=== PATIENT | female | born 1960 | race Caucasian/White ===

== ENCOUNTER 2017-01-19 17:36 | Inpatient (IN) ==
[2017-01-19] MEDS ORDERED: LEVOFLOXACIN INJ 750 MG in PREMIX 1 EACH IV STA (17:50)
[2017-01-19] MEDS ORDERED: methylPREDNISolone SOD SUC 125 MG/2 ML VIAL IV STA (17:50)
[2017-01-19] MEDS ORDERED: ONDANSETRON 4 MG/2 ML VIAL IV STA (17:50)
--- NOTE | 2017-01-19 17:54 | Emergency Department Note ---
Arrival - Arrival Chief Complaint: Shortness of Breath ED Nursing Triage Note: pt was [facility] from the [facility] for ?pneumonia and sob Mode of Arrival: Stretcher Limitations: No Limitations Source: Patient Time Seen by Provider: 01/19/17 17:50 - History of Present Illness HPI Narrative: This 56-year-old [facility] patient with a DNR label presents for respiratory difficulties but no other history accompanies the patient including oxygen saturation and temperature at the [facility]. Although the patient is oriented to person and place she cannot give any cognizant history answering in a positive fashion to every question given her. Currently she does not appear in any acute medical distress. Onset (ago): hour(s) (Patient presents several hours post onset of symptoms) Allergies/Adverse Reactions: Allergies Allergy/AdvReac Type Severity Reaction Status Date / Time No Known Allergies Allergy Verified 05/28/16 10:38 Home Medications: Home Medications Medication Instructions Recorded Confirmed Type Citalopram [CeleXA] 20 mg PEG DAILY 01/12/16 12/15/16 History Furosemide Tab [Lasix Tab] 40 mg PEG BID 01/12/16 12/15/16 History Metoprolol Tartrate 100 mg PEG BID 01/12/16 12/15/16 History Multivit-Minerals/Ferrous Fum 15 ml PEG DAILY 01/12/16 12/15/16 History [Multivitamin Liquid] Warfarin [Coumadin] 5 mg PEG DAILY 01/12/16 12/15/16 History amLODIPine [Norvasc] 5 mg PEG DAILY 01/12/16 12/15/16 History levETIRAcetam LIQUID [Keppra 500 mg PEG Q12H 01/12/16 12/15/16 History Liquid] Polyvinyl Alcohol 1.4% Oph Sherrill 2 drop BOTH EYES QID 05/28/16 12/15/16 History [Artificial Tears Oph Soln] Potassium Chloride [K-Tab ER] 10 meq PEG DAILY 05/28/16 12/15/16 History Albuterol/Ipratropium Neb [Duoneb] 3 ml RESP TX RT Q4H 07/25/16 12/15/16 History Insulin Glargine [Lantus] 30 unit SUBCUT 0500,1600 07/25/16 12/15/16 History Metoclopramide Tab [Reglan Tab] 10 mg PO TIDAC 07/25/16 12/15/16 History Esomeprazole Magnesium [Nexium] 20 mg PEG BID #0 07/30/16 12/15/16 Rx Review of System - Review of System ROS unobtainable: due to mental status Medical,Surgical,& Family Hx - Medical History Cardio: History of: Cardiac Dysrhythmia, CHF, CAD, Hypertension, [place], Pacemaker, Cardiovascular Problems (pacemaker) Psychological: History of: Depression Neurology: History of: Cerebrovascular Accident No history of: Seizures Endocrine: History of: Diabetes Mellitus (IDDM), Diabetes Mellitus (NIDDM), Thyroid Disorder (hypothyrodism) Respiratory: History of: Respiratory Problems (h/o trach) Renal: History of: Renal Failure (chronic), Renal Problems (chronic kidney disease not on dialysis) Gastrointestinal: History of: GERD, GI Problems (constipation) - Surgical History Cardiac Surgeries: Sugical HX of: Cardiac Catheterization Thoracic Surgeries: Patient denies;: Organ Transplant - Social History Smoking Status: Never smoker Frequency of Alcohol Use: None Type of Drug Use: None Exam Physical Examination: GENERAL: Well developed, well nourished chronically ill-appearing white female in no acute distress. HEENT: Normocephalic. No trauma. Moist mucous membranes. EOMI. PERRLA. ENT NML NECK: Supple. No adenopathy. Trach scar noted. CARDIAC: Regular. No murmurs. Heart rate 115 CHEST: Scattered expiratory rhonchi and wheeze. No respiratory distress. O2 saturation 92% ABDOMEN: Soft. Nontender. Active bowel sounds. EXTREMITIES: No trauma. Normal ROM. No pedal edema. SKIN: No diaphoresis. No rash. NEURO: Alert. Oriented to person and place only. 4 out of 5 left-sided weakness compared to right Vital Signs: Vital Signs Temperature 96.6 F L 01/19/17 17:40 Pulse Rate 134 H 01/19/17 18:14 Respiratory Rate 18 01/19/17 18:14 Blood Pressure 95/77 01/19/17 17:40 O2 Sat by Pulse Oximetry 97 01/19/17 18:14 Course - Reevaluation(s) Reevaluation #1: Advised patient of need for hospitalization if she can understand. - Consultations Consultation #1: Discussed with hospitalist service who will admit for further evaluation treatment. Results - Labs CBC & BMP: 01/19/17 18:17 Labs: I reviewed the laboratory noted the elevated white blood cell count as well as the very infected urine. Likewise noted was elevated BMP and significantly lengthened INR. - Diagnostic Findings Procedure: Chest x-ray: image reviewed by me, report reviewed by me (No acute disease) Disposition Clinical Impression: Bacterial tracheobronchitis, Cystitis, Prolonged INR Case discussed with: patient Disposition: Still a Patient Condition: Guarded Time of Disposition: 19:25
[2017-01-19] MEDS ORDERED: ALBUTEROL 2.5 MG/3 ML NEB RESP TX ONE ×3 (18:11→18:57)
[2017-01-19] MEDS: ALBUTEROL 2.5 MG/3 ML NEB RESP TX SCH ×3 (18:14→18:40)
[2017-01-19 18:24] LABS: Basophils # 0.1 10*3/uL (0.0-0.2); Basophils % 0.4 % (0.0-0.8); Hematocrit 44.2 VOL% (35.7-47.0); Hemoglobin 14.7 GM/DL (12.0-16.0); Immature Granulocytes % 1.1 %; Immature Granulocytes Absolute 0.25 #; Lymphocytes # 1.2 10*3/uL (1.4-4.0); Lymphocytes % 5.3 % (21.3-54.2); Mean Corpuscular HGB Conc 33.3 GM/DL (32-36); Mean Corpuscular Hemoglobin 27 PG (27-34); Mean Corpuscular Volume 81.7 FL (87-102); Monocytes # 1.1 10*3/uL (0.11-0.8); Monocytes % 4.8 % (1.7-12.7); Neutrophils # 20.1 10*3/uL (1.4-7.4); Neutrophils % 88.4 % (38.7-73.9); Platelet Count 163 T/CUMM (130-400); Red Blood Count 5.41 MC/CUMM (3.8-5.5); Red Cell Distribution Width 15.4 % (9.3-17.3); White Blood Count 22.7 T/CUMM (4-12)
[2017-01-19] MEDS ORDERED: ONDANSETRON 4 MG/2 ML VIAL ONE (18:30)
[2017-01-19] MEDS ORDERED: LEVOFLOXACIN INJ 150 ML IV ONE (18:30)
[2017-01-19] MEDS ORDERED: methylPREDNISolone SOD SUC 125 MG/2 ML VIAL ONE (18:31)
--- NOTE | 2017-01-19 18:48 | XRay Report ---
Portable chest Exam date: 01/19/2017 5:51 PM Indication: Shortness of breath, cough Comparison: July 26, 2016 at 5:54 PM Findings: Cardiomediastinal contours are stable with no change in pacemaker placement. Lungs are clear bilaterally. No acute osseous abnormalities. Visualized upper abdomen demonstrates no acute pathology. Impression: No acute cardiopulmonary findings PROCEDURE INTERPRETED AT [facility] DEPARTMENT OF RADIOLOGY Final Report Signed by: Kathleen Thao MD
[2017-01-19 18:50] LABS: INR 4.8
[2017-01-19 18:51] LABS: Apearance,Urine CLOUDY (Clear); Bacteria,Urine Few /HPF (Few); Bilirubin,Urine Negative (Negative); Blood, Urine Large mg/dL (Negative); Glucose,Urine (UA) Negative (Negative); Ketones,Urine Negative (Negative); Nitrite,Urine Negative (Negative); Protein,Urine Negative; RBC,Urine 29 /HPF (0-4); Squamous Epithelial Cell,Urine Occasional /HPF (0-10); Urine Specific Gravity 1.013 (1.001-1.035); Urine Urobilinogen < 2.0 EU/DL (0.2-1.0); WBC,Urine 165 /HPF (0-6)
[2017-01-19 18:52] LABS: Urine Color Yellow (Yellow)
[2017-01-19 18:58] LABS: Partial Thromboplastin Time 60.5 SECS (0-40)
[2017-01-19 19:51] LABS: Band Neutrophils 2 % (0-10); Lymphocytes 5 % (20-55); Platelet Estimate Normal; Segmented Neutrophils 89 % (50-85); Total Cells Counted 100
[2017-01-19] MEDS ORDERED: ONDANSETRON 4 MG/2 ML VIAL IV PRN (20:02)
[2017-01-19] MEDS ORDERED: ALBUTEROL 2.5 MG/3 ML NEB RESP TX PRN (20:02)
[2017-01-19] MEDS ORDERED: ACETAMINOPHEN 325 MG TABLET PO PRN (20:02)
--- NOTE | 2017-01-19 20:17 | Hospitalist History & Physical ---
Assessment and Plan (1) History of stroke Status: Acute Current Visit: Yes (2) Afib Status: Acute Current Visit: No (3) Seizures Status: Acute Current Visit: No (4) CHF (congestive heart failure) Status: Acute Current Visit: No (5) UTI (urinary tract infection) Status: Acute Current Visit: No (6) Hematemesis Status: Acute Assessment and plan: We will admit the patient her our service. Patient is a DNR per documentation from the [facility]. I am unsure what her baseline mental status is. Patient did have a chemistry drawn earlier today from the [facility] on the same. Does show a low potassium. This needs to be repleted. Which is a little bit lower than her 0.8 previously. Creatinine is 1.3. This can be handled by increased her water flushes with her tube feeds. She looks a little dehydrated. Reevaluate patient in the morning and adjust plans appropriate. We need to treat her urinary tract infection we need to monitor her INR daily while she is here. Currently she had a 4.8. She was given Levaquin in the emergency room this most likely will increase. Current Visit: No Qualifiers: Nausea presence: with nausea Qualified Code(s): K92.0 - Hematemesis; R11.0 - Nausea History of Present Illness Chief complaint: Low O2 sats and shortness of breath History of present illness: Ms. Serrano is a 56 year old female who is a resident of a [facility]. She cannot give any history. She does reports to me that she does not feel good. According to our computer system she has a history of congestive heart failure coronary artery disease hypertension [place] pacemaker depression stroke diabetes or thyroid disorder history of a trach respiratory failure chronic kidney disease and reflux. She is on Coumadin for atrial fibrillation. She has elevated INR. She has profound deficits from her stroke in the past and she is on PEG tube feedings. Home Medications Medication Instructions Recorded Confirmed Type Citalopram [CeleXA] 20 mg PEG DAILY 01/12/16 01/19/17 History Furosemide Tab [Lasix Tab] 40 mg PEG BID 01/12/16 01/19/17 History Metoprolol Tartrate 100 mg PEG BID 01/12/16 01/19/17 History Multivit-Minerals/Ferrous Fum 15 ml PEG DAILY 01/12/16 01/19/17 History [Multivitamin Liquid] Warfarin [Coumadin] 5 mg PEG DAILY 01/12/16 01/19/17 History amLODIPine [Norvasc] 5 mg PEG DAILY 01/12/16 01/19/17 History levETIRAcetam LIQUID [Keppra 500 mg PEG Q12H 01/12/16 01/19/17 History Liquid] Polyvinyl Alcohol 1.4% Oph Sherrill 2 drop BOTH EYES QID 05/28/16 01/19/17 History [Artificial Tears Oph Soln] Potassium Chloride [K-Tab ER] 10 meq PEG DAILY 05/28/16 01/19/17 History Insulin Glargine [Lantus] 30 unit SUBCUT 0500,1600 07/25/16 01/19/17 History Metoclopramide Tab [Reglan Tab] 10 mg PO TIDAC 07/25/16 01/19/17 History Esomeprazole Magnesium [Nexium] 20 mg PEG BID #0 07/30/16 01/19/17 Rx Sodium Chloride 5% Oph Oint [Arvin 1 applic LEFT EYE BEDTIME 01/19/17 01/19/17 History 128 Oph Oint] Allergies Allergy/AdvReac Type Severity Reaction Status Date / Time No Known Allergies Allergy Verified 05/28/16 10:38 Medical,Surgical,& Family Hx - Medical History Cardio: History of: Cardiac Dysrhythmia, CHF, CAD, Hypertension, [place], Pacemaker, Cardiovascular Problems (pacemaker) Psychological: History of: Depression Neurology: History of: Cerebrovascular Accident No history of: Seizures Endocrine: History of: Diabetes Mellitus (IDDM), Diabetes Mellitus (NIDDM), Thyroid Disorder (hypothyrodism) Respiratory: History of: Respiratory Problems (h/o trach) Renal: History of: Renal Failure (chronic), Renal Problems (chronic kidney disease not on dialysis) Gastrointestinal: History of: GERD, GI Problems (constipation) - Surgical History Cardiac Surgeries: Sugical HX of: Cardiac Catheterization Thoracic Surgeries: Patient denies;: Organ Transplant - Family History Family History: Reports;: Family Hypertension - Social History Smoking Status: Never smoker Frequency of Alcohol Use: None Type of Drug Use: None ROS unobtainable: due to mental status Exam - Constitutional Vitals: Period Temp Pulse Resp BP Sys/Esquivel Pulse Ox Last 24 Hr 96.6 F-96.6 F 117-134 18-18 95-95/77-77 92-97 General appearance: normal weight - Head Head exam: Present: normal inspection - Eye Pupils: Present: SOFYA - ENT ENT exam: Present: normal exam - Neck Neck exam: Present: normal inspection - Respiratory Respiratory exam: Present: other (Coarse breath sounds bilaterally currently no wheeze) - Cardiovascular Cardiovascular exam: Present: tachycardia - GI/Abdominal GI/Abdominal exam: Present: normal bowel sounds, other (PEG tube in place) - Extremities Exam Extremities exam: Present: edema - Back Exam Back exam: Present: normal inspection - Neurological Exam Neurological exam: Present: other (Neurological deficits present from stroke oriented to person and place only with residual left-sided weakness) - Psychiatric Psychiatric exam: Present: depressed Results - Labs CBC & BMP: 01/19/17 18:17
[2017-01-19] MEDS ORDERED: NON-FORMULARY MEDICATION (Esomeprazole Magnesium [Nexium] 20 MG) PEG SCH (21:00)
[2017-01-19 22:14] LABS: Alanine Aminotransferase 17 U/L (13-56); Albumin 3.1 G/DL (3.4-5.0); Alkaline Phosphatase 107 U/L (45-117); Aspartate Amino Transferase 21 U/L (0-37); Blood Urea Nitrogen 44 MG/DL (7-18); Calcium 9.6 MG/DL (8.5-10.1); Glucose 112 MG/DL (74-106); Osmolality,Calculated 281.1 MOS/KG (273-304); Potassium 3.6 MMOL/L (3.5-5.1); Sodium 135 MMOL/L (136-145); Total Protein 8.2 G/DL (6.4-8.3); Troponin I Only < 0.015 NG/ML (0.00-0.045)
[2017-01-19] MEDS ORDERED: DEXTROSE 50% 25 GM/50 ML SYRINGE IV PRN (22:26)
[2017-01-19] MEDS ORDERED: POTASSIUM CHLORIDE 20 MEQ/15 ML UDCUP PO PRN (22:26)
[2017-01-19] MEDS ORDERED: GLUCAGON 1 MG VIAL IM PRN (22:26)
[2017-01-19] MEDS ORDERED: POTASSIUM CHLORIDE 20 MEQ/15 ML UDCUP PER TUBE PRN (22:46)
[2017-01-19] MEDS: INSULIN REGULAR 100 UNIT/ML SUBCUT SCH (23:55)
[2017-01-20] MEDS: POLYVINYL ALCOHOL 1.4% OPH SOLN 15 ML BOTTLE BOTH EYES SCH ×5 (00:02→21:58)
[2017-01-20] MEDS: levETIRAcetam LIQUID 100 MG/ML 30 ML/BOTTLE PEG SCH ×3 (00:02→21:58)
[2017-01-20] MEDS: SODIUM CHLORIDE 5% LEFT EYE SCH ×2 (00:02→21:58)
[2017-01-20] MEDS: FUROSEMIDE 40 MG TABLET PEG SCH ×3 (00:09→16:47)
[2017-01-20] MEDS: ALBUTEROL/IPRATROPIUM 3 ML NEB RESP TX SCH ×4 (01:01→20:06)
[2017-01-20 07:17] LABS: Basophils % 0.1 % (0.0-0.8); Hemoglobin 12.9 GM/DL (12.0-16.0); Immature Granulocytes % 1.7 %; Immature Granulocytes Absolute 0.39 #; Lymphocytes # 0.4 10*3/uL (1.4-4.0); Lymphocytes % 1.8 % (21.3-54.2); Mean Corpuscular HGB Conc 33.1 GM/DL (32-36); Mean Corpuscular Hemoglobin 27 PG (27-34); Mean Corpuscular Volume 81.8 FL (87-102); Monocytes # 0.8 10*3/uL (0.11-0.8); Monocytes % 3.4 % (1.7-12.7); Neutrophils # 21.1 10*3/uL (1.4-7.4); Platelet Count 158 T/CUMM (130-400); Red Blood Count 4.77 MC/CUMM (3.8-5.5); Red Cell Distribution Width 14.8 % (9.3-17.3); White Blood Count 22.7 T/CUMM (4-12)
[2017-01-20 07:39] LABS: PT Patient Result 73.3 SECS
[2017-01-20 07:40] LABS: INR 6.7
[2017-01-20 07:44] LABS: Band Neutrophils 8 % (0-10); Hypochromasia Slight; Lymphocytes 1 % (20-55); Platelet Estimate Adequate; Segmented Neutrophils 90 % (50-85); Total Cells Counted 100
[2017-01-20 07:58] LABS: Albumin 2.4 G/DL (3.4-5.0); Bilirubin,Total 0.7 MG/DL (0.2-1.0); Calcium 9.3 MG/DL (8.5-10.1); Osmolality,Calculated 299.2 MOS/KG (273-304); Potassium 3.2 MMOL/L (3.5-5.1); Total Protein 7.3 G/DL (6.4-8.3)
[2017-01-20] MEDS: POTASSIUM CHLORIDE 20 MEQ/15 ML UDCUP PEG SCH (09:23)
[2017-01-20] MEDS: INSULIN REGULAR 100 UNIT/ML SUBCUT SCH ×4 (09:23→22:14)
[2017-01-20] MEDS: CITALOPRAM 20 MG TABLET PEG SCH (09:24)
[2017-01-20] MEDS: amLODIPine 5 MG TABLET PEG SCH (09:24)
[2017-01-20] MEDS: LANSOPRAZOLE ODT 30 MG TABLET PEG SCH (09:24)
[2017-01-20] MEDS: METOCLOPRAMIDE 10 MG/10 ML UDCUP PEG SCH ×3 (09:25→16:47)
[2017-01-20] MEDS: MULTIVITAMIN LIQUID (CENTRUM) 60 ML BOTTLE PEG SCH (09:25)
[2017-01-20] MEDS ORDERED: PHYTONADIONE 5 MG TABLET PEG ONE (10:00)
--- NOTE | 2017-01-20 11:02 | Hospitalist Progress Note ---
Assessment and Plan (1) Elevated INR Status: Acute Assessment and plan: INR up to 6 today, possibly elevated more due to receiving levaquin yesterday Continue to hold coumadin Current Visit: Yes (2) Diabetes mellitus Status: Chronic Assessment and plan: SSI Current Visit: No Qualifiers: Diabetes mellitus type: type 2 (3) Afib Status: Acute Current Visit: No (4) UTI (urinary tract infection) Status: Acute Assessment and plan: Gram negative rods on urine culture so far Continue rocephin Current Visit: No (5) Hematemesis Status: Acute Assessment and plan: H/H is ok Will consult GI before discharge Current Visit: No Qualifiers: Nausea presence: with nausea Qualified Code(s): K92.0 - Hematemesis; R11.0 - Nausea (6) History of stroke Status: Acute Current Visit: Yes Hospitalist: Subjective Interval history: No acute events overnight. Patient is drowsy this morning but will wake up and answer questions. She does tell me that has been throwing up bed, the last time was about a week ago. Exam - Constitutional Vitals: Period Temp Pulse Resp BP Sys/Esquivel Pulse Ox Last 24 Hr 96.6 F-98.3 F 65-134 16-20 95-122/52-77 92-98 General appearance: normal weight - Head Head exam: Present: normocephalic, atraumatic - Eye Eye exam: Present: EOMI Pupils: Present: SOFYA - ENT ENT exam: Present: normal exam - Neck Neck exam: Present: normal inspection - Respiratory Respiratory exam: Present: clear to auscultation bilaterally. Absent: wheezes - Cardiovascular Cardiovascular exam: Present: regular rate and rhythm - GI/Abdominal GI/Abdominal exam: Present: normal bowel sounds, soft. Absent: tenderness, rebound - Extremities Exam Extremities exam: Present: normal inspection - Back Exam Back exam: Present: normal inspection - Neurological Exam Neurological exam: Present: alert - Psychiatric Psychiatric exam: Present: normal affect, normal mood - Skin Skin exam: Present: warm, intact Results - Labs CBC & BMP: 01/20/17 06:03 01/20/17 06:03
[2017-01-21] MEDS: ALBUTEROL/IPRATROPIUM 3 ML NEB RESP TX SCH ×4 (00:57→20:07)
--- NOTE | 2017-01-21 07:38 | XRay Report ---
XR chest 1V portable Indication: Cough and fever Comparison: To January 2017 Findings: The heart and mediastinum are normal in size and configuration. Pacemaker device is unchanged in position. The pulmonary vascularity is normal in caliber. There is increased right lower lung density present. No other lung infiltrates, effusions, pneumothorax or other abnormality is demonstrated. Impression: Increased right lower lung density, may represent pneumonia. PROCEDURE INTERPRETED AT [facility] DEPARTMENT OF RADIOLOGY Final Report Signed by: Dr. Gregory Arce
[2017-01-21] MEDS: FUROSEMIDE 40 MG TABLET PEG SCH ×2 (07:58→16:00)
[2017-01-21] MEDS: METOCLOPRAMIDE 10 MG/10 ML UDCUP PEG SCH ×3 (07:58→15:59)
[2017-01-21 08:04] LABS: Basophils % 0.2 % (0.0-0.8); Hematocrit 37.4 VOL% (35.7-47.0); Hemoglobin 12.7 GM/DL (12.0-16.0); Immature Granulocytes % 0.7 %; Immature Granulocytes Absolute 0.13 #; Lymphocytes # 0.9 10*3/uL (1.4-4.0); Lymphocytes % 4.4 % (21.3-54.2); Mean Corpuscular Hemoglobin 28 PG (27-34); Mean Corpuscular Volume 81.3 FL (87-102); Monocytes # 0.9 10*3/uL (0.11-0.8); Monocytes % 4.5 % (1.7-12.7); Neutrophils # 17.4 10*3/uL (1.4-7.4); Neutrophils % 90.2 % (38.7-73.9); Platelet Count 194 T/CUMM (130-400); Red Cell Distribution Width 15.3 % (9.3-17.3); White Blood Count 19.3 T/CUMM (4-12)
[2017-01-21 08:11] LABS: INR 3.8
[2017-01-21 08:13] LABS: PT Patient Result 40.1 SECS
[2017-01-21 08:23] LABS: Calcium 9.7 MG/DL (8.5-10.1); Magnesium 2.4 MG/DL (1.8-2.4); Osmolality,Calculated 310.1 MOS/KG (273-304); Potassium 4.1 MMOL/L (3.5-5.1)
[2017-01-21 08:26] LABS: Band Neutrophils 7 % (0-10); Hypochromasia 1+; Lymphocytes 3 % (20-55); Segmented Neutrophils 87 % (50-85); Total Cells Counted 100
[2017-01-21 08:27] LABS: Microcytosis 1+; Platelet Estimate Adequate
[2017-01-21] MEDS ORDERED: DEXTROSE 50% 25 GM/50 ML VIAL IV PRN (08:30)
[2017-01-21] MEDS: INSULIN REGULAR 100 UNIT/ML SUBCUT SCH ×4 (10:25→20:53)
[2017-01-21] MEDS: POTASSIUM CHLORIDE 20 MEQ/15 ML UDCUP PEG SCH (10:25)
[2017-01-21] MEDS: CITALOPRAM 20 MG TABLET PEG SCH (10:27)
[2017-01-21] MEDS: LANSOPRAZOLE ODT 30 MG TABLET PEG SCH (10:27)
[2017-01-21] MEDS: amLODIPine 5 MG TABLET PEG SCH (10:27)
[2017-01-21] MEDS: levETIRAcetam LIQUID 100 MG/ML 30 ML/BOTTLE PEG SCH ×2 (10:30→20:52)
[2017-01-21] MEDS: POLYVINYL ALCOHOL 1.4% OPH SOLN 15 ML BOTTLE BOTH EYES SCH ×4 (10:32→20:52)
[2017-01-21] MEDS: MULTIVITAMIN LIQUID (CENTRUM) 60 ML BOTTLE PEG SCH (10:32)
[2017-01-21] MEDS ORDERED: AZITHROMYCIN INJ 500 MG in SODIUM CHLORIDE 0.9% 250 ML IV ONE (12:30)
--- NOTE | 2017-01-21 13:39 | Hospitalist Progress Note ---
Assessment and Plan (1) Elevated INR Status: Acute Assessment and plan: INR trending down Continue to hold coumadin Current Visit: Yes (2) Diabetes mellitus Status: Chronic Assessment and plan: SSI Current Visit: No Qualifiers: Diabetes mellitus type: type 2 (3) Afib Status: Acute Current Visit: No (4) UTI (urinary tract infection) Status: Acute Assessment and plan: 2/2 Providencia stuartii Continue rocephin Current Visit: No (5) Hematemesis Status: Acute Assessment and plan: Reports of this None since admission H/H is within normal limits Monitor closely Current Visit: No Qualifiers: Nausea presence: with nausea Qualified Code(s): K92.0 - Hematemesis; R11.0 - Nausea (6) History of stroke Status: Acute Current Visit: Yes Hospitalist: Subjective Interval history: No acute events overnight. Patient is drowsy but will wake up and answer questions. Exam - Constitutional Vitals: Period Temp Pulse Resp BP Sys/Esquivel Pulse Ox Last 24 Hr 96.7 F-98.0 F 72-132 14-20 76-110/51-71 94-99 General appearance: normal weight - Head Head exam: Present: normocephalic, atraumatic - Eye Eye exam: Present: EOMI Pupils: Present: SOFYA - ENT ENT exam: Present: normal exam - Neck Neck exam: Present: normal inspection - Respiratory Respiratory exam: Present: clear to auscultation bilaterally. Absent: rhonchi, wheezes - Cardiovascular Cardiovascular exam: Present: regular rate and rhythm - GI/Abdominal GI/Abdominal exam: Present: normal bowel sounds, soft. Absent: tenderness, rebound - Extremities Exam Extremities exam: Present: normal inspection - Back Exam Back exam: Present: normal inspection - Neurological Exam Neurological exam: Present: alert - Psychiatric Psychiatric exam: Absent: agitated, anxious - Skin Skin exam: Present: warm, intact Results - Labs CBC & BMP: 01/21/17 07:00 01/21/17 07:00
[2017-01-21] MEDS: SODIUM CHLORIDE 5% LEFT EYE SCH (20:52)
[2017-01-22] MEDS: ALBUTEROL/IPRATROPIUM 3 ML NEB RESP TX SCH ×4 (02:31→19:23)
[2017-01-22 05:30] LABS: Basophils % 0.1 % (0.0-0.8); Eosinophils # 0.1 10*3/uL (0.0-0.87); Eosinophils % 0.4 % (0.00-10.9); Hematocrit 38.4 VOL% (35.7-47.0); Hemoglobin 12.4 GM/DL (12.0-16.0); Immature Granulocytes % 0.4 %; Immature Granulocytes Absolute 0.04 #; Lymphocytes # 0.9 10*3/uL (1.4-4.0); Lymphocytes % 8.1 % (21.3-54.2); Mean Corpuscular HGB Conc 32.3 GM/DL (32-36); Mean Corpuscular Hemoglobin 27 PG (27-34); Mean Corpuscular Volume 82.8 FL (87-102); Mean Platelet Volume 12.4 FL (9.6-12.0); Monocytes # 0.9 10*3/uL (0.11-0.8); Monocytes % 7.5 % (1.7-12.7); Neutrophils # 9.4 10*3/uL (1.4-7.4); Neutrophils % 83.5 % (38.7-73.9); Platelet Count 206 T/CUMM (130-400); Red Blood Count 4.64 MC/CUMM (3.8-5.5); Red Cell Distribution Width 15.9 % (9.3-17.3); White Blood Count 11.3 T/CUMM (4-12)
[2017-01-22 05:43] LABS: INR 4.1; PT Patient Result 43.7 SECS
[2017-01-22 06:02] LABS: Calcium 9.2 MG/DL (8.5-10.1); Magnesium 2.5 MG/DL (1.8-2.4); Osmolality,Calculated 316.4 MOS/KG (273-304)
[2017-01-22] MEDS: CITALOPRAM 20 MG TABLET PEG SCH (08:42)
[2017-01-22] MEDS: INSULIN REGULAR 100 UNIT/ML SUBCUT SCH ×4 (08:42→20:24)
[2017-01-22] MEDS: FUROSEMIDE 40 MG TABLET PEG SCH ×2 (08:42→17:10)
[2017-01-22] MEDS: METOCLOPRAMIDE 10 MG/10 ML UDCUP PEG SCH ×3 (08:42→17:11)
[2017-01-22] MEDS: levETIRAcetam LIQUID 100 MG/ML 30 ML/BOTTLE PEG SCH ×2 (08:43→20:25)
[2017-01-22] MEDS: POTASSIUM CHLORIDE 20 MEQ/15 ML UDCUP PEG SCH (08:43)
[2017-01-22] MEDS: LANSOPRAZOLE ODT 30 MG TABLET PEG SCH (08:43)
[2017-01-22] MEDS: amLODIPine 5 MG TABLET PEG SCH (08:44)
[2017-01-22] MEDS: POLYVINYL ALCOHOL 1.4% OPH SOLN 15 ML BOTTLE BOTH EYES SCH ×4 (08:44→20:20)
[2017-01-22] MEDS: AZITHROMYCIN INJ 250 MG in SODIUM CHLORIDE 0.9% 250 ML IV SCH (08:48)
[2017-01-22] MEDS: MULTIVITAMIN LIQUID (CENTRUM) 60 ML BOTTLE PEG SCH (08:49)
--- NOTE | 2017-01-22 18:14 | Hospitalist Progress Note ---
<Prakash Mcdaniels - Last Filed: 01/22/17 18:12> Assessment and Plan (1) Elevated INR Status: Acute Assessment and plan: INR noted at 4.1. This is a moderate increase from 3.8 on yesterday. We will continue to hold Coumadin and recheck INR in a.m. Current Visit: Yes (2) Coffee ground emesis Status: Acute Assessment and plan: No further episodes of hematemesis noted since admission. Protein pump inhibitors and gut motility stimulators remaining use as previously ordered. We will monitor closely. Current Visit: No (3) UTI (urinary tract infection) Status: Acute Assessment and plan: Urine cultures positive for Providencia stuartii; empiric antibiotic coverage remains in progress. We will continue azithromycin and ceftriaxone as previously ordered. Current Visit: No (4) Diabetes mellitus Status: Chronic Assessment and plan: Blood glucose levels remain moderately elevated. Blood glucose levels have remained consistently above 150. We will continue Accu-Cheks with sliding scale coverage as previously ordered. In addition, we will start low-dose Lantus 15 units at the hour of sleep and reassess blood glucose levels in a.m. Current Visit: No Qualifiers: Diabetes mellitus type: type 2 Hospitalist: Subjective Interval history: Seen and examined; chart reviewed. No significant overnight events reported per staff. INR noted at 4.1 a moderate increase from 3.8 on yesterday. Exam - Constitutional Vitals: Period Temp Pulse Resp BP Sys/Esquivel Pulse Ox Last 24 Hr 97.1 F-98.1 F 100-138 18-20 106-131/67-88 93-99 General appearance: normal weight, no acute distress - Head Head exam: Present: normal inspection, normocephalic, atraumatic - Eye Eye exam: Present: EOMI. Absent: conjunctival injection Pupils: Present: SOFYA, normal accommodation - ENT ENT exam: Present: normal exam, normal external ear exam, normal oropharynx - Neck Neck exam: Present: normal inspection. Absent: lymphadenopathy, meningismus, tenderness, thyromegaly - Respiratory Respiratory exam: Present: clear to auscultation bilaterally. Absent: rales, rhonchi, stridor, wheezes - Cardiovascular Cardiovascular exam: Present: bradycardia, regular rate and rhythm. Absent: carotid bruit, diastolic murmur, gallop, JVD, rubs, systolic murmur - GI/Abdominal GI/Abdominal exam: Present: normal bowel sounds, other (PEG tube pain and intact ) - Extremities Exam Extremities exam: Present: normal inspection, normal capillary refill. Absent: edema - Back Exam Back exam: Present: normal inspection - Neurological Exam Neurological exam: Present: alert - Psychiatric Psychiatric exam: Present: flat affect - Skin Skin exam: Present: normal color, warm, dry Results - Labs CBC & BMP: 01/22/17 05:06 01/22/17 05:06 Lab Results: I have reviewed the past 24 hour labs <Beatriz Natarajan - Last Filed: 01/22/17 18:52> Assessment and Plan (1) Elevated INR Status: Acute Current Visit: Yes (2) Diabetes mellitus Status: Chronic Current Visit: No Qualifiers: Diabetes mellitus type: type 2 (3) Afib Status: Acute Current Visit: No (4) UTI (urinary tract infection) Status: Acute Current Visit: No (5) Hematemesis Status: Acute Current Visit: No Qualifiers: Nausea presence: with nausea Qualified Code(s): K92.0 - Hematemesis; R11.0 - Nausea (6) History of stroke Status: Acute Current Visit: Yes Hospitalist: Subjective Interval history: Patient seen and examined independently of IMPROVEMENT INTERN joana Mcdaniels with assessment and plan as documented. Exam - Constitutional Vitals: Period Temp Pulse Resp BP Sys/Esquivel Pulse Ox Last 24 Hr 97.1 F-98.1 F 100-138 18-20 106-131/67-88 93-99 Results - Labs CBC & BMP: 01/22/17 05:06 01/22/17 05:06
[2017-01-22] MEDS: SODIUM CHLORIDE 5% LEFT EYE SCH (20:24)
[2017-01-22] MEDS ORDERED: INSULIN GLARGINE 100 UNIT/ML SUBCUT SCH (21:00)
[2017-01-23] MEDS: ALBUTEROL/IPRATROPIUM 3 ML NEB RESP TX SCH ×4 (00:46→20:23)
[2017-01-23 05:09] LABS: Basophils % 0.4 % (0.0-0.8); Eosinophils # 0.1 10*3/uL (0.0-0.87); Eosinophils % 0.5 % (0.00-10.9); Hematocrit 37.8 VOL% (35.7-47.0); Hemoglobin 12.2 GM/DL (12.0-16.0); Immature Granulocytes % 0.8 %; Immature Granulocytes Absolute 0.08 #; Lymphocytes # 1.1 10*3/uL (1.4-4.0); Mean Corpuscular HGB Conc 32.3 GM/DL (32-36); Mean Corpuscular Hemoglobin 27 PG (27-34); Mean Corpuscular Volume 84.2 FL (87-102); Mean Platelet Volume 12.5 FL (9.6-12.0); Monocytes # 0.9 10*3/uL (0.11-0.8); Monocytes % 9.2 % (1.7-12.7); Neutrophils # 7.6 10*3/uL (1.4-7.4); Neutrophils % 78.1 % (38.7-73.9); Platelet Count 209 T/CUMM (130-400); Red Blood Count 4.49 MC/CUMM (3.8-5.5); Red Cell Distribution Width 16.1 % (9.3-17.3); White Blood Count 9.7 T/CUMM (4-12)
[2017-01-23 05:36] LABS: Calcium 9.4 MG/DL (8.5-10.1); Magnesium 2.6 MG/DL (1.8-2.4); Osmolality,Calculated 321.6 MOS/KG (273-304); Potassium 4.1 MMOL/L (3.5-5.1)
[2017-01-23] MEDS: FUROSEMIDE 40 MG TABLET PEG SCH ×2 (09:46→16:29)
[2017-01-23] MEDS: LANSOPRAZOLE ODT 30 MG TABLET PEG SCH (09:46)
[2017-01-23] MEDS: CITALOPRAM 20 MG TABLET PEG SCH (09:46)
[2017-01-23] MEDS: METOCLOPRAMIDE 10 MG/10 ML UDCUP PEG SCH ×3 (09:47→16:29)
[2017-01-23] MEDS: POLYVINYL ALCOHOL 1.4% OPH SOLN 15 ML BOTTLE BOTH EYES SCH ×4 (09:47→21:58)
[2017-01-23] MEDS: amLODIPine 5 MG TABLET PEG SCH (09:47)
[2017-01-23] MEDS: INSULIN REGULAR 100 UNIT/ML SUBCUT SCH ×4 (09:54→21:49)
[2017-01-23] MEDS: POTASSIUM CHLORIDE 20 MEQ/15 ML UDCUP PEG SCH (10:03)
[2017-01-23] MEDS: levETIRAcetam LIQUID 100 MG/ML 30 ML/BOTTLE PEG SCH ×2 (10:06→22:02)
[2017-01-23] MEDS: MULTIVITAMIN LIQUID (CENTRUM) 60 ML BOTTLE PEG SCH (10:06)
[2017-01-23] MEDS: AZITHROMYCIN INJ 250 MG in SODIUM CHLORIDE 0.9% 250 ML IV SCH (10:17)
[2017-01-23] MEDS: DEXTROSE 5% 1,000 ML IV SCH (10:25)
--- NOTE | 2017-01-23 14:30 | Hospitalist Progress Note ---
<Catherine Mcdanielsda - Last Filed: 01/23/17 14:27> Assessment and Plan (1) Elevated INR Status: Acute Assessment and plan: INR noted at 4.1. This is a moderate increase from 3.8 on yesterday. We will continue to hold Coumadin and recheck INR in a.m. 10/6-Coumadin remains on hold. We will recheck INR in a.m. Current Visit: Yes (2) Coffee ground emesis Status: Acute Assessment and plan: No further episodes of hematemesis noted since admission. Protein pump inhibitors and gut motility stimulators remaining use as previously ordered. We will monitor closely. Current Visit: No (3) UTI (urinary tract infection) Status: Acute Assessment and plan: Urine cultures positive for Providencia stuartii; empiric antibiotic coverage remains in progress. We will continue azithromycin and ceftriaxone as previously ordered. Current Visit: No (4) Diabetes mellitus Status: Chronic Assessment and plan: Blood glucose levels remain moderately elevated. Blood glucose levels have remained consistently above 150. We will continue Accu-Cheks with sliding scale coverage as previously ordered. In addition, we will start low-dose Lantus 15 units at the hour of sleep and reassess blood glucose levels in a.m. 10/6-Blood glucose levels remains elevated. Lantus was initiated on last night. Will increase Lantus 25 units at the hour of sleep. Current Visit: No Qualifiers: Diabetes mellitus type: type 2 Hospitalist: Subjective Interval history: Patient seen and examined; no significant overnight events reported per staff. Sodium remains elevated at 153 up from 147 on yesterday. Exam - Constitutional Vitals: Period Temp Pulse Resp BP Sys/Esquivel Pulse Ox Last 24 Hr 97 F-98.3 F 56-136 14-20 126-159/61-88 92-99 General appearance: normal weight - Head Head exam: Present: normal inspection, normocephalic, atraumatic - Eye Eye exam: Present: EOMI. Absent: conjunctival injection Pupils: Present: SOFYA, normal accommodation - ENT ENT exam: Present: normal exam, normal external ear exam, normal oropharynx - Neck Neck exam: Present: normal inspection. Absent: lymphadenopathy, meningismus, tenderness - Respiratory Respiratory exam: Present: clear to auscultation bilaterally. Absent: rhonchi, stridor, wheezes - Cardiovascular Cardiovascular exam: Present: regular rate and rhythm. Absent: carotid bruit, diastolic murmur, gallop, JVD, rubs, systolic murmur - GI/Abdominal GI/Abdominal exam: Present: normal bowel sounds, soft, other (PEG Tube noted) - Extremities Exam Extremities exam: Present: normal inspection, normal capillary refill, full ROM. Absent: edema - Back Exam Back exam: Present: normal inspection - Neurological Exam Neurological exam: Present: altered - Psychiatric Psychiatric exam: Present: flat affect - Skin Skin exam: Present: normal color, warm, dry Results - Labs CBC & BMP: 01/23/17 04:33 01/23/17 04:33 Lab Results: I have reviewed the past 24 hour labs <Beatriz Natarajan - Last Filed: 01/23/17 15:14> Assessment and Plan (1) Elevated INR Status: Acute Current Visit: Yes (2) Diabetes mellitus Status: Chronic Current Visit: No Qualifiers: Diabetes mellitus type: type 2 (3) Afib Status: Acute Current Visit: No (4) UTI (urinary tract infection) Status: Acute Current Visit: No (5) Hematemesis Status: Acute Current Visit: No Qualifiers: Nausea presence: with nausea Qualified Code(s): K92.0 - Hematemesis; R11.0 - Nausea (6) History of stroke Status: Acute Current Visit: Yes Hospitalist: Subjective Interval history: Patient seen and examined independently of BRAIN WAVE TECHNICIAN Arslan, agree with assessment and plan as documented. Patient is more awake today. Started on D5 for hypernatremia, discontinue NS. Exam - Constitutional Vitals: Period Temp Pulse Resp BP Sys/Esquivel Pulse Ox Last 24 Hr 97 F-98.3 F 56-136 14-20 126-159/61-88 92-99 Results - Labs CBC & BMP: 01/23/17 04:33 01/23/17 04:33
[2017-01-23] MEDS ORDERED: INSULIN GLARGINE 100 UNIT/ML SUBCUT SCH (14:35)
[2017-01-23] MEDS: SODIUM CHLORIDE 5% LEFT EYE SCH (22:00)
[2017-01-24] MEDS: ALBUTEROL/IPRATROPIUM 3 ML NEB RESP TX SCH ×4 (00:57→20:23)
[2017-01-24] MEDS: DEXTROSE 5% 1,000 ML IV SCH ×2 (04:04→19:33)
[2017-01-24 05:28] LABS: Basophils # 0.1 10*3/uL (0.0-0.2); Basophils % 0.6 % (0.0-0.8); Eosinophils # 0.2 10*3/uL (0.0-0.87); Eosinophils % 1.9 % (0.00-10.9); Hemoglobin 11.5 GM/DL (12.0-16.0); Immature Granulocytes % 1.9 %; Lymphocytes # 1.4 10*3/uL (1.4-4.0); Lymphocytes % 12.8 % (21.3-54.2); Mean Corpuscular HGB Conc 31.9 GM/DL (32-36); Mean Corpuscular Hemoglobin 27 PG (27-34); Mean Corpuscular Volume 84.5 FL (87-102); Mean Platelet Volume 12.2 FL (9.6-12.0); Monocytes # 0.7 10*3/uL (0.11-0.8); Monocytes % 6.9 % (1.7-12.7); Neutrophils % 75.9 % (38.7-73.9); Platelet Count 217 T/CUMM (130-400); Red Blood Count 4.26 MC/CUMM (3.8-5.5); White Blood Count 10.5 T/CUMM (4-12)
[2017-01-24 05:36] LABS: INR 1.3; PT Patient Result 13.9 SECS
[2017-01-24 05:54] LABS: Calcium 9.2 MG/DL (8.5-10.1)
[2017-01-24 05:55] LABS: Magnesium 2.3 MG/DL (1.8-2.4); Osmolality,Calculated 310.1 MOS/KG (273-304); Potassium 3.9 MMOL/L (3.5-5.1)
--- NOTE | 2017-01-24 07:30 | Hospitalist Progress Note ---
<Prakash Mcdaniels - Last Filed: 01/24/17 07:28> Assessment and Plan (1) Elevated INR Status: Acute Assessment and plan: INR noted at 4.1. This is a moderate increase from 3.8 on yesterday. We will continue to hold Coumadin and recheck INR in a.m. 01/23-Coumadin remains on hold. We will recheck INR in a.m. 01/24-INR 1.3. We will resume Coumadin per pharmacy recommendation. Current Visit: Yes (2) Coffee ground emesis Status: Acute Assessment and plan: No further episodes of hematemesis noted since admission. Protein pump inhibitors and gut motility stimulators remaining use as previously ordered. We will monitor closely. Current Visit: No (3) UTI (urinary tract infection) Status: Acute Assessment and plan: Urine cultures positive for Providencia stuartii; empiric antibiotic coverage remains in progress. We will continue azithromycin and ceftriaxone as previously ordered. Current Visit: No (4) Diabetes mellitus Status: Chronic Assessment and plan: Blood glucose levels remain moderately elevated. Blood glucose levels have remained consistently above 150. We will continue Accu-Cheks with sliding scale coverage as previously ordered. In addition, we will start low-dose Lantus 15 units at the hour of sleep and reassess blood glucose levels in a.m. 01/23-Blood glucose levels remains elevated. Lantus was initiated on last night. Will increase Lantus 25 units at the hour of sleep. 01/24-continue Accu-Cheks with sliding scale coverage and Lantus 25 units nightly as previously ordered. Current Visit: No Qualifiers: Diabetes mellitus type: type 2 Hospitalist: Subjective Interval history: Patient seen and examined; chart reviewed. No significant overnight events reported per staff. Sodium remains elevated at 149; down from 153 on yesterday. We will continue dextrose 5% and free water flushes as previously ordered. Exam - Constitutional Vitals: Period Temp Pulse Resp BP Sys/Esquivel Pulse Ox Last 24 Hr 97.0 F-98.3 F 56-94 14-24 138-158/66-86 93-99 General appearance: normal weight, no no acute distress - Head Head exam: Present: normal inspection, normocephalic, atraumatic - Eye Eye exam: Present: EOMI. Absent: conjunctival injection Pupils: Present: SOFYA, normal accommodation - ENT ENT exam: Present: normal exam, normal external ear exam, normal oropharynx - Neck Neck exam: Present: normal inspection. Absent: lymphadenopathy, meningismus, tenderness, thyromegaly - Respiratory Respiratory exam: Present: clear to auscultation bilaterally. Absent: decreased breath sounds, rales, rhonchi, stridor, wheezes - Cardiovascular Cardiovascular exam: Present: regular rate and rhythm - GI/Abdominal GI/Abdominal exam: Present: normal bowel sounds, soft, other (PEG tube noted) - Extremities Exam Extremities exam: Present: normal inspection, normal capillary refill. Absent: edema - Back Exam Back exam: Present: normal inspection - Neurological Exam Neurological exam: Present: alert, altered - Psychiatric Psychiatric exam: Present: flat affect - Skin Skin exam: Present: normal color, warm, dry Results - Labs CBC & BMP: 01/24/17 04:55 01/24/17 04:55 Lab Results: I have reviewed the past 24 hour labs <Beatriz Natarajan - Last Filed: 01/24/17 12:19> Assessment and Plan (1) Elevated INR Status: Acute Current Visit: Yes (2) Diabetes mellitus Status: Chronic Current Visit: No Qualifiers: Diabetes mellitus type: type 2 (3) Afib Status: Acute Current Visit: No (4) UTI (urinary tract infection) Status: Acute Current Visit: No (5) Hematemesis Status: Acute Current Visit: No Qualifiers: Nausea presence: with nausea Qualified Code(s): K92.0 - Hematemesis; R11.0 - Nausea (6) History of stroke Status: Acute Current Visit: Yes Hospitalist: Subjective Interval history: Patient seen and examined independently of COOKIE BREAKER Arslan, agree with assessment and plan as documented. INR down to 1.2, restart coumadin Exam - Constitutional Vitals: Period Temp Pulse Resp BP Sys/Esquivel Pulse Ox Last 24 Hr 97.1 F-98.2 F 60-94 16-24 143-157/63-75 93-99 Results - Labs CBC & BMP: 01/24/17 04:55 01/24/17 04:55
[2017-01-24] MEDS: FUROSEMIDE 40 MG TABLET PEG SCH ×2 (08:32→15:32)
[2017-01-24] MEDS: amLODIPine 5 MG TABLET PEG SCH (08:32)
[2017-01-24] MEDS: LANSOPRAZOLE ODT 30 MG TABLET PEG SCH (08:32)
[2017-01-24] MEDS: CITALOPRAM 20 MG TABLET PEG SCH (08:32)
[2017-01-24] MEDS: METOCLOPRAMIDE 10 MG/10 ML UDCUP PEG SCH ×3 (08:33→15:32)
[2017-01-24] MEDS: POTASSIUM CHLORIDE 20 MEQ/15 ML UDCUP PEG SCH (08:33)
[2017-01-24] MEDS: POLYVINYL ALCOHOL 1.4% OPH SOLN 15 ML BOTTLE BOTH EYES SCH ×4 (08:37→22:52)
[2017-01-24] MEDS: INSULIN REGULAR 100 UNIT/ML SUBCUT SCH ×4 (08:37→22:52)
[2017-01-24] MEDS: AZITHROMYCIN INJ 250 MG in SODIUM CHLORIDE 0.9% 250 ML IV SCH (08:42)
[2017-01-24] MEDS: levETIRAcetam LIQUID 100 MG/ML 30 ML/BOTTLE PEG SCH ×2 (10:50→22:51)
[2017-01-24] MEDS: MULTIVITAMIN LIQUID (CENTRUM) 60 ML BOTTLE PEG SCH (10:50)
[2017-01-24] MEDS: WARFARIN 5 MG TABLET PEG SCH (17:16)
[2017-01-24] MEDS: SODIUM CHLORIDE 5% LEFT EYE SCH (22:52)
[2017-01-24] MEDS: INSULIN GLARGINE 100 UNIT/ML SUBCUT SCH (22:53)
[2017-01-25] MEDS: ALBUTEROL/IPRATROPIUM 3 ML NEB RESP TX SCH ×4 (00:59→19:32)
[2017-01-25 04:27] LABS: Basophils # 0.1 10*3/uL (0.0-0.2); Basophils % 0.7 % (0.0-0.8); Eosinophils # 0.5 10*3/uL (0.0-0.87); Eosinophils % 5.3 % (0.00-10.9); Hematocrit 37.2 VOL% (35.7-47.0); Immature Granulocytes % 3.2 %; Immature Granulocytes Absolute 0.28 #; Lymphocytes # 1.6 10*3/uL (1.4-4.0); Lymphocytes % 18.5 % (21.3-54.2); Mean Corpuscular HGB Conc 32.3 GM/DL (32-36); Mean Corpuscular Hemoglobin 27 PG (27-34); Mean Corpuscular Volume 83.8 FL (87-102); Mean Platelet Volume 12.2 FL (9.6-12.0); Monocytes # 0.6 10*3/uL (0.11-0.8); Monocytes % 7.2 % (1.7-12.7); Neutrophils # 5.8 10*3/uL (1.4-7.4); Neutrophils % 65.1 % (38.7-73.9); Platelet Count 237 T/CUMM (130-400); Red Blood Count 4.44 MC/CUMM (3.8-5.5); Red Cell Distribution Width 15.4 % (9.3-17.3); White Blood Count 8.9 T/CUMM (4-12)
[2017-01-25 04:30] LABS: INR 1.2; PT Patient Result 12.2 SECS
[2017-01-25 04:48] LABS: Albumin 2.1 G/DL (3.4-5.0); Bilirubin,Total 0.5 MG/DL (0.2-1.0); Magnesium 2.2 MG/DL (1.8-2.4); Phosphorous 3.6 MG/DL (2.5-4.9); Potassium 3.8 MMOL/L (3.5-5.1); Total Protein 6.2 G/DL (6.4-8.3)
--- NOTE | 2017-01-25 08:42 | XRay Report ---
Portable chest Indication: Shortness of breath, cough Comparison: January 21, 2017 Findings: Cardiomediastinal contours are stable with no change in pacemaker placement. Elevation of the right hemidiaphragm with right basilar atelectasis. Remainder of lungs are clear. No acute osseous abnormalities. Visualized upper abdomen demonstrates no acute pathology. Impression: Right basilar atelectasis with elevation right hemidiaphragm PROCEDURE INTERPRETED AT [facility] DEPARTMENT OF RADIOLOGY Final Report Signed by: Kathleen Thao MD
[2017-01-25] MEDS: INSULIN REGULAR 100 UNIT/ML SUBCUT SCH ×4 (09:15→22:58)
[2017-01-25] MEDS: amLODIPine 5 MG TABLET PEG SCH (09:17)
[2017-01-25] MEDS: FUROSEMIDE 40 MG TABLET PEG SCH ×2 (09:17→17:14)
[2017-01-25] MEDS: CITALOPRAM 20 MG TABLET PEG SCH (09:17)
[2017-01-25] MEDS: LANSOPRAZOLE ODT 30 MG TABLET PEG SCH (09:17)
[2017-01-25] MEDS: METOCLOPRAMIDE 10 MG/10 ML UDCUP PEG SCH ×3 (09:17→17:14)
[2017-01-25] MEDS: POTASSIUM CHLORIDE 20 MEQ/15 ML UDCUP PEG SCH (09:18)
[2017-01-25] MEDS: levETIRAcetam LIQUID 100 MG/ML 30 ML/BOTTLE PEG SCH ×2 (09:18→22:57)
[2017-01-25] MEDS: POLYVINYL ALCOHOL 1.4% OPH SOLN 15 ML BOTTLE BOTH EYES SCH ×4 (09:18→22:55)
[2017-01-25] MEDS: MULTIVITAMIN LIQUID (CENTRUM) 60 ML BOTTLE PEG SCH (09:18)
[2017-01-25] MEDS: DEXTROSE 5% 1,000 ML IV SCH (09:38)
[2017-01-25] MEDS: AZITHROMYCIN INJ 250 MG in SODIUM CHLORIDE 0.9% 250 ML IV SCH (09:54)
--- NOTE | 2017-01-25 09:58 | Hospitalist Progress Note ---
<Catherine Mcdanielsda - Last Filed: 01/25/17 09:56> Assessment and Plan (1) Elevated INR Status: Acute Assessment and plan: INR noted at 4.1. This is a moderate increase from 3.8 on yesterday. We will continue to hold Coumadin and recheck INR in a.m. 01/23-Coumadin remains on hold. We will recheck INR in a.m. 01/24-INR 1.3. We will resume Coumadin per pharmacy recommendation. 01/25-Coumadin was resumed on yesterday at 5 mg. We will recheck INR in a.m. We will continue Coumadin per pharmacy recommendation. Current Visit: Yes (2) Coffee ground emesis Status: Acute Assessment and plan: No further episodes of hematemesis noted since admission. Protein pump inhibitors and gut motility stimulators remaining use as previously ordered. We will monitor closely. Current Visit: No (3) UTI (urinary tract infection) Status: Acute Assessment and plan: Urine cultures positive for Providencia stuartii; empiric antibiotic coverage remains in progress. We will continue azithromycin and ceftriaxone as previously ordered. Current Visit: No (4) Diabetes mellitus Status: Chronic Assessment and plan: Blood glucose levels remain moderately elevated. Blood glucose levels have remained consistently above 150. We will continue Accu-Cheks with sliding scale coverage as previously ordered. In addition, we will start low-dose Lantus 15 units at the hour of sleep and reassess blood glucose levels in a.m. 01/23-Blood glucose levels remains elevated. Lantus was initiated on last night. Will increase Lantus 25 units at the hour of sleep. 01/24-continue Accu-Cheks with sliding scale coverage and Lantus 25 units nightly as previously ordered. Current Visit: No Qualifiers: Diabetes mellitus type: type 2 Hospitalist: Subjective Interval history: Patient seen and examined; chart reviewed. No significant overnight events reported per staff. Sodium is normalized at 143. We will continue supportive care. If no significant overnight events; patient may be appropriate for discharge back to the [facility] facility on tomorrow. INR noted at 1.2. Coumadin 5 mg given on yesterday. We will recheck INR in a.m. Exam - Constitutional Vitals: Period Temp Pulse Resp BP Sys/Esquivel Pulse Ox Last 24 Hr 97.5 F-98.6 F 60-115 16-21 120-150/56-71 89-99 General appearance: normal weight, no acute distress - Head Head exam: Present: normal inspection, normocephalic, atraumatic - Eye Eye exam: Present: EOMI. Absent: conjunctival injection Pupils: Present: SOFYA, normal accommodation - ENT ENT exam: Present: normal exam, normal external ear exam, normal oropharynx - Neck Neck exam: Present: normal inspection. Absent: lymphadenopathy, meningismus, tenderness, thyromegaly - Respiratory Respiratory exam: Present: clear to auscultation bilaterally. Absent: rales, rhonchi, stridor, wheezes - Cardiovascular Cardiovascular exam: Present: regular rate and rhythm. Absent: carotid bruit, diastolic murmur, gallop, JVD, rubs, systolic murmur - GI/Abdominal GI/Abdominal exam: Present: normal bowel sounds, soft, other (PEG tube) - Extremities Exam Extremities exam: Present: normal inspection, normal capillary refill - Back Exam Back exam: Present: normal inspection - Neurological Exam Neurological exam: Present: alert, altered, CN II-XII intact - Psychiatric Psychiatric exam: Present: normal affect, normal mood - Skin Skin exam: Present: normal color, warm, dry Results - Labs CBC & BMP: 01/25/17 03:44 01/25/17 03:44 Lab Results: I have reviewed the past 24 hour labs <Beatriz Natarajan - Last Filed: 01/25/17 10:50> Assessment and Plan (1) Elevated INR Status: Acute Current Visit: Yes (2) Diabetes mellitus Status: Chronic Current Visit: No Qualifiers: Diabetes mellitus type: type 2 (3) Afib Status: Acute Current Visit: No (4) UTI (urinary tract infection) Status: Acute Current Visit: No (5) Hematemesis Status: Acute Current Visit: No Qualifiers: Nausea presence: with nausea Qualified Code(s): K92.0 - Hematemesis; R11.0 - Nausea (6) History of stroke Status: Acute Current Visit: Yes Hospitalist: Subjective Interval history: Patient seen and examined independently of JASPREET Mcdaniels, agree with assessment and plan as documented. Possible discharge tomorrow. Exam - Constitutional Vitals: Period Temp Pulse Resp BP Sys/Esquivel Pulse Ox Last 24 Hr 97.5 F-98.6 F 60-115 16-21 120-150/56-71 89-99 Results - Labs CBC & BMP: 01/25/17 03:44 01/25/17 03:44
[2017-01-25] MEDS: WARFARIN 5 MG TABLET PEG SCH (17:53)
[2017-01-25] MEDS: SODIUM CHLORIDE 5% LEFT EYE SCH (22:56)
[2017-01-25] MEDS: INSULIN GLARGINE 100 UNIT/ML SUBCUT SCH (22:57)
[2017-01-26] MEDS: ALBUTEROL/IPRATROPIUM 3 ML NEB RESP TX SCH ×3 (00:43→13:33)
[2017-01-26] MEDS: DEXTROSE 5% 1,000 ML IV SCH ×3 (01:21→07:16)
[2017-01-26] MEDS ORDERED: ZINC OXIDE PASTE 113 GM TUBE TOP PRN (03:17)
[2017-01-26 06:16] LABS: Basophils # 0.1 10*3/uL (0.0-0.2); Basophils % 0.5 % (0.0-0.8); Eosinophils # 0.3 10*3/uL (0.0-0.87); Eosinophils % 3.6 % (0.00-10.9); Hematocrit 34.6 VOL% (35.7-47.0); Hemoglobin 11.5 GM/DL (12.0-16.0); Immature Granulocytes Absolute 0.47 #; Lymphocytes # 1.6 10*3/uL (1.4-4.0); Lymphocytes % 16.8 % (21.3-54.2); Mean Corpuscular HGB Conc 33.2 GM/DL (32-36); Mean Corpuscular Hemoglobin 27 PG (27-34); Mean Corpuscular Volume 81.8 FL (87-102); Mean Platelet Volume 11.9 FL (9.6-12.0); Monocytes # 0.4 10*3/uL (0.11-0.8); Monocytes % 4.2 % (1.7-12.7); Neutrophils # 6.6 10*3/uL (1.4-7.4); Neutrophils % 69.9 % (38.7-73.9); Platelet Count 259 T/CUMM (130-400); Red Blood Count 4.23 MC/CUMM (3.8-5.5); Red Cell Distribution Width 14.8 % (9.3-17.3); White Blood Count 9.4 T/CUMM (4-12)
[2017-01-26 06:23] LABS: INR 1.4
[2017-01-26 06:50] LABS: Albumin 2.1 G/DL (3.4-5.0); Bilirubin,Total 0.6 MG/DL (0.2-1.0); Calcium 8.9 MG/DL (8.5-10.1); Magnesium 2.1 MG/DL (1.8-2.4); Osmolality,Calculated 276.8 MOS/KG (273-304); Phosphorous 3.1 MG/DL (2.5-4.9); Potassium 3.8 MMOL/L (3.5-5.1); Total Protein 5.8 G/DL (6.4-8.3)
[2017-01-26] MEDS: INSULIN REGULAR 100 UNIT/ML SUBCUT SCH ×2 (08:24→11:43)
[2017-01-26] MEDS: CITALOPRAM 20 MG TABLET PEG SCH (08:33)
[2017-01-26] MEDS: POTASSIUM CHLORIDE 20 MEQ/15 ML UDCUP PEG SCH (08:33)
[2017-01-26] MEDS: amLODIPine 5 MG TABLET PEG SCH (08:33)
[2017-01-26] MEDS: METOCLOPRAMIDE 10 MG/10 ML UDCUP PEG SCH ×2 (08:33→11:43)
[2017-01-26] MEDS: LANSOPRAZOLE ODT 30 MG TABLET PEG SCH (08:33)
[2017-01-26] MEDS: FUROSEMIDE 40 MG TABLET PEG SCH (08:33)
[2017-01-26] MEDS: MULTIVITAMIN LIQUID (CENTRUM) 60 ML BOTTLE PEG SCH (08:34)
[2017-01-26] MEDS: levETIRAcetam LIQUID 100 MG/ML 30 ML/BOTTLE PEG SCH (08:34)
[2017-01-26] MEDS: POLYVINYL ALCOHOL 1.4% OPH SOLN 15 ML BOTTLE BOTH EYES SCH ×2 (08:35→12:19)
--- NOTE | 2017-01-26 11:06 | Discharge Summary ---
Hospital Course - Hospital Course Hospital Course: Ms Serrano 56 y/o w/PMHx CHF, CAD, HTN, NE, Pacemaker, depression, CVA, DM, thyroid, hx of trach, GERD presented to the ED 01/19/17 for further evaluation of Shortness of breath. IN ED: WBC 22.7, INR 4.8, PT 51.0, PTT 60.5, Na 135, BUN 44, Creatinine 1.40. Glucose 112. BNP 525. Urinalysis positive for UTI. CXR: nothing acute. Hospital medicine consulted for admission. Diuretics. INR elevated, hold coumadin. UTI start rocephin. repeat labs. INR returned to below theurapeutic range, restarted coumadin. Urine infection treated with appropriate sensitive antibiotics for urine culture final of Providencia stuartii. Blood culture final shows no growth. today 01/26/17 patient is stable. symptoms improved. Labs improved and stable. She will be discharged back to nursing facility. She will need to follow up with primary care physician. Further recommendations for discharge planning to follow per Dr Natarajan. - Time spent with patient Time with patient DS: Greater than 30 minutes (40) Diagnosis - Discharge Diagnosis (1) Elevated INR Status: Resolved (2) Diabetes mellitus Status: Chronic (3) Afib Status: Chronic (4) UTI (urinary tract infection) Status: Resolved (5) Hematemesis Status: Resolved (6) History of stroke Status: Chronic Discharge Plan - Discharge Data Disposition: Disch/Xfer to Snf Condition at Discharge: Stable Discharge Diet: advance to your usual diet Activity: increase activity as tolerated Hygiene: no restrictions Weight Bearing at Discharge: weight bear as tolerated Driving: no restrictions Contact your physician if you experience:: fever over 101 - Discharge Medications Continue Citalopram [CeleXA] 20 mg PEG DAILY Furosemide Tab [Lasix Tab] 40 mg PEG BID Warfarin [Coumadin] 5 mg PEG DAILY amLODIPine [Norvasc] 5 mg PEG DAILY levETIRAcetam LIQUID [Keppra Liquid] 500 mg PEG Q12H Multivit-Minerals/Ferrous Fum [Multivitamin Liquid] 15 ml PEG DAILY Metoclopramide Tab [Reglan Tab] 10 mg PO TIDAC Insulin Glargine [Lantus] 30 unit SUBCUT 0500,1600 Sodium Chloride 5% Oph Oint [Arvin 128 Oph Oint] 1 applic LEFT EYE BEDTIME Potassium Chloride [K-Tab ER] 10 meq PEG DAILY Polyvinyl Alcohol 1.4% Oph Sherrill [Artificial Tears Oph Soln] 2 drop BOTH EYES QID Esomeprazole Magnesium [Nexium] 20 mg PEG BID #0 Discontinued Metoprolol Tartrate 100 mg PEG BID - Follow Up or Referral - Forms/Instructions Exam - Constitutional Vitals: Period Temp Pulse Resp BP Sys/Esquivel Pulse Ox Last 24 Hr 96.5 F-97.6 F 60-112 18-20 103-141/51-70 94-99 General appearance: normal weight - Head Head exam: Present: normocephalic, atraumatic - Eye Eye exam: Present: EOMI Pupils: Present: SOFYA - ENT ENT exam: Present: normal exam - Neck Neck exam: Present: normal inspection - Respiratory Respiratory exam: Present: clear to auscultation bilaterally. Absent: rhonchi, wheezes - Cardiovascular Cardiovascular exam: Absent: regular rate and rhythm - GI/Abdominal GI/Abdominal exam: Present: normal bowel sounds, soft. Absent: tenderness, rebound - Extremities Exam Extremities exam: Present: normal inspection - Back Exam Back exam: Present: normal inspection - Neurological Exam Neurological exam: Present: alert, oriented X3 - Psychiatric Psychiatric exam: Present: normal affect, normal mood - Skin Skin exam: Present: warm, intact Discharge Results Labs on day of discharge: Labs from last 24 hours 01/26/17 01/26/17 01/26/17 11:17 07:49 05:48 WBC RBC Hgb Hct MCV MCH MCHC RDW Plt Count MPV Neut % (Auto) Lymph % (Auto) [place] % (Auto) Eos % (Auto) Baso % (Auto) Neut # (Auto) Lymph # (Auto) [place] # (Auto) Eos # (Auto) Baso # (Auto) Immature Gran % Nucleated RBC % Immature Gran # Nucleated RBCs # Immature Plt Fraction INR PT Patient/Control Mix Sodium 137 Potassium 3.8 Chloride 98 Carbon Dioxide 32 Anion Gap 10.8 BUN 22 H Creatinine 0.50 L GFR Calculation 109 BUN/Creatinine Ratio 44.00 H Glucose 114 H POC Glucose 190 H 115 H Calculated Osmolality 276.8 Calcium 8.9 Phosphorus 3.1 Magnesium 2.1 Total Bilirubin 0.60 AST 20 ALT 50 Alkaline Phosphatase 81 Total Protein 5.8 L Albumin 2.1 L Globulin 3.7 H Albumin/Globulin Ratio 0.5 L 01/26/17 01/26/17 01/25/17 05:48 05:48 18:26 WBC 9.4 RBC 4.23 Hgb 11.5 L Hct 34.6 L MCV 81.8 L MCH 27 MCHC 33.2 RDW 14.8 Plt Count 259 MPV 11.9 Neut % (Auto) 69.9 Lymph % (Auto) 16.8 L [place] % (Auto) 4.2 Eos % (Auto) 3.6 Baso % (Auto) 0.5 Neut # (Auto) 6.6 Lymph # (Auto) 1.6 [place] # (Auto) 0.4 Eos # (Auto) 0.3 Baso # (Auto) 0.1 Immature Gran % 5.0 Nucleated RBC % 0.0 Immature Gran # 0.47 Nucleated RBCs # 0.00 Immature Plt Fraction 0.0 INR 1.4 PT Patient/Control Mix 15.0 D Sodium Potassium Chloride Carbon Dioxide Anion Gap BUN Creatinine GFR Calculation BUN/Creatinine Ratio Glucose POC Glucose 171 H Calculated Osmolality Calcium Phosphorus Magnesium Total Bilirubin AST ALT Alkaline Phosphatase Total Protein Albumin Globulin Albumin/Globulin Ratio 01/25/17 01/25/17 15:19 12:16 WBC RBC Hgb Hct MCV MCH MCHC RDW Plt Count MPV Neut % (Auto) Lymph % (Auto) [place] % (Auto) Eos % (Auto) Baso % (Auto) Neut # (Auto) Lymph # (Auto) [place] # (Auto) Eos # (Auto) Baso # (Auto) Immature Gran % Nucleated RBC % Immature Gran # Nucleated RBCs # Immature Plt Fraction INR PT Patient/Control Mix Sodium Potassium Chloride Carbon Dioxide Anion Gap BUN Creatinine GFR Calculation BUN/Creatinine Ratio Glucose POC Glucose 187 H 182 H Calculated Osmolality Calcium Phosphorus Magnesium Total Bilirubin AST ALT Alkaline Phosphatase Total Protein Albumin Globulin Albumin/Globulin Ratio DS: Provider Date of admission: 01/19/17 20:03 Primary care physician: Festus Hahn DO Attending physician on admission: Anival Hernandes MD Discharging clinician: Beatriz Natarajan MD
[2017-01-26 11:36] VITALS: BP 141/61
--- NOTE | 2017-01-26 13:02 | Physician Query Form ---
CLICK EDIT DOCUMENT TO SELECT QUERY ANSWER --> OK --> SIGN Jovita Solis RN Clinical Tinner Helper W) [phone] (f) [phone] [email or web address]: Make your selection(s) from the choices in EACH section by typing an "x" and enter comments in the comment section. Please use your independent medical judgment in providing your response. This request does not imply that any particular answer is desired or expected. CLINICAL INDICATORS: (Providers should not edit this section) Based on lab results of creatinine of 1.50 with a GFR of 39 and decreased to 1.00. Pt. treated with IV fluids. Clarify which of the following most accurately represents the patient's renal status: ( ) Acute kidney injury (non-traumatic) ( ) Acute renal failure (x ) Acute renal failure with underlying Chronic Kidney Disease (CKD) - please provide stage below ( ) CKD - please provide stage below ( ) Other, please specify: ( ) Clinically unable to determine Chronic Kidney Disease Stages Source: National Kid[employer] ( ) Stage I (eGFR > or = 90) ( ) Stage II (eGFR 60 - 89) (x ) Stage III (eGFR 30 - 59) ( ) Stage IV (eGFR 15 - 29) ( ) Stage V (eGFR < 15 or dialysis) COMMENTS: PLEASE ALSO DOCUMENT RESPONSE IN PROGRESS NOTES AND/OR DISCHARGE SUMMARY Use of terms such as suspected, likely, or probable (associated with a specific diagnosis that is being evaluated, monitored, or treated as if it exists) are acceptable and can be restated in the discharge summary if not ruled out. MTDD
== END 2017-01-26 13:45 | DRG 690 ==
LOC: EDBD → EDUNIT# → N.ED 17:36 → SUATTDRO 20:02 → N.EDINP 20:02 → N.2E 20:59
PROVIDERS: ADMIT Internal Medicine; ATTEND Internal Medicine